=== PATIENT | female | born 1985 | race American Indian/Alaskan Native ===

== ENCOUNTER 2018-11-01 10:40 | Day surgery (SDC) | payer MEDICAID ==
[~2018-11-01 10:40] MED LIST: EPINEPHrine/PF (1:1,000) 1 MG/1 ML INJ ONE; HYALURONATE IO ONE; [UNRECOGNIZED DRUG - OTHER] IO ONE
[2018-11-01] MEDS ORDERED: ONDANSETRON 4 MG/2 ML INJ IV PRN (10:54)
[2018-11-01] MEDS ORDERED: fentaNYL 100 MCG/2 ML INJ IV PRN (10:54)
--- NOTE | 2018-11-01 10:55 | Anesthesia Day of Surgery ---
Anesthesia Day of Surgery - Day of Surgery Patient Examined: Yes Patient H&P Reviewed: Yes Patient is NPO: Yes
[2018-11-01] MEDS ORDERED: LACTATED RINGERS 1,000 ML IV SCH (11:00)
--- NOTE | 2018-11-01 11:02 | Anesthesia Consultation ---
Anesthesia Consult and Med Hx Date of service: 11/01/18 - Airway Anesthetic Teeth Evaluation: Chipped ROM Head & Neck: Adequate Mental/Hyoid Distance: Adequate Mallampati Class: Class II Intubation Access Assessment: Good - Pre-Operative Health Status ASA Pre-Surgery Classification: ASA2 Proposed Anesthetic Plan: General, MAC - Pulmonary Hx Smoking: Yes (1/2PACK/DAY SINCE 2009) - Central Nervous System Hx Psychiatric Problems: No - Hematic Hx Anemia: Yes (RESOLVED) Hx Sickle Cell Disease: No - Other Systems Hx Alcohol Use: Yes Hx Substance Use: No Hx Cancer: No Hx Obesity: Yes
[2018-11-01] MEDS ORDERED: TETRACAINE 0.5% OPHTH SOLN 4ML OD SCH (11:30)
[2018-11-01] MEDS: MOXIFLOXACIN 0.5% OPHTH SOLN 3ML OD SCH ×3 (11:40→11:50)
[2018-11-01] MEDS: PHENYLEPHRINE 2.5% OPHTH SOLN 2 ML OD SCH ×3 (11:40→11:50)
[2018-11-01] MEDS: TROPICAMIDE 1% OPHTH SOLN 3 ML OU NR ×3 (11:40→11:50)
[2018-11-01] MEDS ORDERED: fentaNYL 100 MCG/2 ML INJ ONE (13:08)
[2018-11-01] MEDS ORDERED: MIDAZOLAM 2 MG/2 ML INJ ONE (13:08)
[2018-11-01] MEDS ORDERED: PROPOFOL 200 MG/20 ML VIAL IV ONE (13:18)
[2018-11-01] MEDS ORDERED: ePHEDrine SULFATE 50 MG/1 ML INJ ONE (13:27)
[2018-11-01] MEDS ORDERED: dexAMETHasone 20 MG/5 ML VIAL ONE (13:31)
[2018-11-01] MEDS ORDERED: METOCLOPRAMIDE 10 MG/2 ML INJ ONE (13:31)
[2018-11-01] MEDS ORDERED: KETOROLAC 30 MG/1 ML INJ ONE (13:31)
[2018-11-01] MEDS ORDERED: ONDANSETRON 4 MG/2 ML INJ ONE (13:31)
[2018-11-01] MEDS ORDERED: LIDOCAINE MPF INFILTRATI ONE (13:31)
[2018-11-01] MEDS ORDERED: [UNRECOGNIZED DRUG - OTHER] IO ONE (13:32)
[2018-11-01] MEDS ORDERED: HYALURONATE IO ONE (13:32)
[2018-11-01] MEDS ORDERED: PHENYLEPHRINE 10 MG/1 ML INJ SDV ONE (13:45)
[2018-11-01] MEDS ORDERED: ceFAZolin 1 GM VIAL ONE (13:56)
[2018-11-01] MEDS ORDERED: ceFAZolin 1 GM VIAL IV ONE (14:01)
[2018-11-01] MEDS ORDERED: prednisoLONE ACETATE 1% OPHTH SUSP 5 ML OD NR (14:17)
[2018-11-01] MEDS ORDERED: acetaZOLAMIDE 250 MG TAB PO NR (14:17)
--- NOTE | 2018-11-01 14:19 | Short Stay Summary ---
Short Stay Documentation Date of service: 11/01/18 - History H&P: obtained from office - Allergies and Medications Current Medications: Allergies No Known Allergies Allergy (Verified 10/29/18 17:04) Home Medications Medication Instructions Recorded Confirmed Last Taken Type No Known Home Medications [No 10/29/18 10/29/18 Unknown History Reported Home Medications] Active Medications Fentanyl (Sublimaze) 50 mcg IV Q5MIN PRN PRN Reason: Pain , Severe (7-10) Stop: 11/01/18 20:00 Lactated Ringer's (Lactated Ringers) 1,000 mls @ 125 mls/hr IV DIRECT ELIER Ondansetron HCl (Zofran) 4 mg IV ONCE PRN PRN Reason: Nausea And Vomiting Phenylephrine HCl (Ak-Dilate) 1 drops OD Q5MIN ELIER Stop: 11/01/18 16:00 Tetracaine HCl (Tetracaine 0.5%) 1 drops OD Q5M ELIER Stop: 11/01/18 16:00 Tropicamide (Mydriacyl) 1 drops OU ONCE NR Stop: 11/01/18 15:00 - Brief post op/procedure progress note Date of procedure: 11/01/18 Pre-op diagnosis: traumatic subluxed lens right eye Post-op diagnosis: same Procedure: Intracapsular cataract extraction right eye and anterior vitrectomy Anesthesia: GETA Surgeon: JAYLA NOVOA Estimated blood loss: none Pathology: none Condition: stable - Disposition Condition at discharge: Good Disposition: DC-01 TO HOME OR SELFCARE - Discharge Diagnoses (1) Traumatic cataract of right eye Status: Acute Qualifiers: Traumatic cataract type: total Qualified Code(s): H26.131 - Total traumatic cataract, right eye (2) Subluxation, lens Status: Acute Qualifiers: Laterality: right Qualified Code(s): H27.111 - Subluxation of lens, right eye Short Stay Discharge Plan Follow up with: PRIMARY CARE, [Primary Care Provider] - 7 Days
--- NOTE | 2018-11-01 14:27 | Operative Report ---
Operative Report Operative Report: PATIENT'S NAME: DATE OF : DATE OF SURGERY: 11/01/2018 PREOPERATIVE DIAGNOSIS: 1-traumatic cataract right eye 2-subluxed lens right eye POSTOPERATIVE DIAGNOSIS: Same OPERATIVE PROCEDURE: Intracapsular cataract surgery right eye SURGEON: Amena Bhagat M.D. ROUGH AND TRUING MACHINE OPERATOR SURGEON: Beto ANESTHESIA: General anesthesia anesthesia because of the established specific risk of reflux, arrhythmias, or anxiety attacks associated with ocular manipulation, as well as the difficulty of the blocker heated metal forms to manage such potentially catastrophic events while simultaneously attempting to complete the surgical procedure and was deemed necessary for the patient's safety to have a Nurse Inclusion Special Educator present during the procedure whenever possible. A Nurse Inclusion Special Educator was utilized to regulate the intravenous sedation of the patient so the patient was cooperative yet not asleep in order for the patient to successfully maintain fixation of the eye on the operating light of the microscope. SPANISH LITERATURE PROFESSOR: COMPLICATIONS: No surgical complications. No blood loss. ALLERGIES: No known drug allergies PREOPERATIVE NOTE: The patient is easily female with a diagnosis of traumatic subluxed cataract. Physical examination shows visual acuities of 20/CF in the right eye. PROGNOSIS: Excellent INDICATIONS FOR SURGERY: The patient is undergoing surgery in the hopes of eliminating or improving these visual difficulties. PROCEDURE: After arriving at the surgery center, the patient was given topical anesthetic and dilating drops, as noted in the record. The patient was then taken into the operating room and given more anesthetic drops. The eyelids, lashes, and lid margins were scrubbed with Betadine solution, and the patient was draped. The Nurse Inclusion Special Educator administered IV sedation and monitored the patient during the procedure. A speculum was placed between the eyelids, and the patient was asked to fixate on the light of the microscope. A peritomy was made temporally. A second blade was used to create a partial scleral tunnel to the cornea. The incision was opened with a keratome to about 9 mm in length. Sinskey hook and the lens loop were used to express the cataract after injection of viscoelastic. Vitreous protruded through the pupil after removing the cataract. Therefore, a mechanical vitrectomy was indicated. An approach consistent with the surgery was performed utilizing a vitrectomy unit and a continuous infusion of balanced salt solution. The vitrectomy was performed carefully to avoid placing undue traction on the retina. As much vitreous was removed as possible with this approach. The vitreous base along the retinal surface, especially in the areas with scleral folds indenting towards the interior of the eye, was left intact. Vitreous was removed from the pupillary margin and cleaned off of the anterior surface of the iris. After the vitrectomy was completed attempted to tease the iris to see if we could make it smaller and it remained normal blown and completely dilated. 10-o nylon sutures were placed and the wound rechecked. The conjunctiva was full with bipolar cautery. Ancef was injected subconj and IV. Synthroid procedure well and was taken out of general anesthesia. MEDICATIONS APPLIED AT END OF SURGERY: One drop of Vigamox and Pred Forte placed in the eye. The patient was given a shield to wear at night and was instructed not to rub or push on the eye. DISCHARGE SUMMARY: The patient was released in stable condition. The patient and those with the patient were given a written sheet of postoperative instructions and counseling on any abnormal laboratory studies. The patient is to see us tomorrow for follow-up in the office and is to call immediately for any difficulties. Amena Bhagat M.D. Date
[2018-11-01 14:52] VITALS: BP 101/55
--- NOTE | 2018-11-01 16:30 | Post Anesthesia Evaluation ---
- Post Anesthesia Evaluation Patient Participated: Yes Airway Patent: Yes Stable Respiratory Function: Yes Nausea/Vomiting: No Temp > 96.8F: Yes Pain Manageable: Yes Adequeate Hydration: Yes Anesthesia Complications: No
== END 2018-11-01 10:41 | disposition home or self-care (01) ==
LOC: OR 10:40
DX: H26.101 Unspecified traumatic cataract, right eye (principal); H27.111 Subluxation of lens, right eye; E66.9 Obesity, unspecified; F17.210 Nicotine dependence, cigarettes, uncomplicated; Z68.36 Body mass index [BMI] 36.0-36.9, adult; Z72.89 Other problems related to lifestyle; Z98.890 Other specified postprocedural states; Z86.2 Personal history of diseases of the blood and blood-forming organs and certain disorders involving the immune mechanism
CPT/HCPCS: 66840; 67005; 81025; J0171; J0690; J1100; J1885; J2250; J2370; J2405; J2704; J2765; J3010